=== PATIENT | female | born 1940 | race Caucasian/White ===

== ENCOUNTER → 2016-02-26 | Outpatient (CLI) | payer MEDICARE, OTHER ==
[~2016-02-26] MED LIST: AMLO-147 PO; CHOL100062 PO; HYDR200T5 PO; LANS30CA PO; METF500T4 PO; METO50TA16 PO; [UNRECOGNIZED DRUG - OTHER]
--- NOTE | 2016-02-26 16:43 | RADRPT ---
Echocardiogram Report Patient Name: VICKY FERNÁNDEZ Gender: Female Date: 1940 Study Date: 26-Feb-2016 Gospel Singer: Tirso Galo RDCS Location: OP Ref. Physician: RAFI MAST Quality: Good Procedures: Transthoracic echocardiogram with complete 2D, M-Mode, and doppler examination. Indications: Murmur. 2D/M Mode Doppler Measurement Value Normal Ranges Measurement Value Normal Ranges LVIDd 2D 5.2 3.5 - 5.6 cm ADRIANNA Vmax 1.3 cm2 LVIDs 2D 3.3 2.1 - 4.1 cm ADRIANNA VTI 1.3 cm2 LVPWd 2D 0.7 0.6 - 1.1 cm AV Mean Edvin 1.7 m/sec IVSd 2D 0.9 0.6 - 1.1 cm AV Mean PG 12.5 mmHg AoR Diam 2D 1.7 2.0 - 3.7 cm AV Peak Edvin 2.5 m/sec EDV 2D 130.7 cm3 AV Peak PG 24.1 mmHg ESV 2D 37.5 cm3 AV VTI 56.1 cm LA Dimen 2D 4.6 2.3 - 4.0 cm LVOT Mean Edvin 0.9 m/sec LVOT Diam 1.8 cm LVOT Mean PG 3.3 mmHg LVOT Peak Edvin 1.2 m/sec LVOT Peak PG 6.0 mmHg LVOT VTI 31.8 cm MV E Peak Edvin 1.3 m/sec MV A Peak Edvin 1.0 m/sec MV E/A 1.3 MV Decel Time 191 msec MV Decel [place] 7 MV E/A 1.3 Findings Left Ventricle: Normal left ventricular systolic function. Normal left ventricular cavity size. Normal left ventricular wall thickness. Ejection fraction is visually estimated at 60 %. Right Ventricle: Normal right ventricular size. Normal right ventricular systolic function. Left Atrium: There is moderate enlargement of left atrium. Right Atrium: The right atrium is normal in size. Mitral Valve: Mitral valve leaflets appear mildly thickened. Mild mitral valve regurgitation. Aortic Valve: Mild aortic stenosis. Aortic valve Max velocity 2.46 m/sec. Max PG 24.10 mmHg. Mean PG 12.50 mmHg. Aortic valve area 1.50 cm2. Trace aortic valve regurgitation. Tricuspid Valve: Normal appearance and function of the tricuspid valve with trace physiologic regurgitation. Pericardium: Normal pericardium with no significant pericardial effusion. Aorta: Normal aortic root. IVC: Normal size and normal respiratory collapse consistent with normal right atrial pressure. Conclusions Normal left ventricular systolic function. Normal left ventricular cavity size. Normal left ventricular wall thickness. Ejection fraction is visually estimated at 60 %. Mild aortic stenosis. Trace aortic valve regurgitation. PAP could not be estimated. RA pressure is 3 mmHg. Electronically Signed By: Estevan Salinas 26-Feb-2016 16:42:59 -0800 Patient Name: VICKY FERNÁNDEZ Study Date: 26-Feb-[id number]
== END | disposition home or self-care (01) ==
LOC: EKG 12:08
PROVIDERS: ATTEND Internal Medicine
DX: R01.1 Cardiac murmur, unspecified (principal)
CPT/HCPCS: 93306

== ENCOUNTER 2016-03-02 05:39 | Inpatient (IN) | payer MEDICARE, OTHER ==
[2016-02-28 09:35] VITALS: BMI 36.5
--- NOTE | 2016-02-28 16:48 | PREOPHP ---
DATE OF ADMISSION: 02/26/2016 This patient is being admitted electively on 03/02/[address] Daryl Mayers. HISTORY OF PRESENT ILLNESS: This 75-year-old female has been having increasing pain in her left knee. The patient has failed the usual medical therapy to relieve her left knee pain. She has severe osteoarthritis in that knee. The patient decided to undergo a left total knee replacement. The patient did see Dr. Juan Roach a vascular surgeon preoperatively. She was cleared for this surgery by Dr. Roach. She does have lower extremity venous insufficiency and does have some dependent edema , which she has had for 25 years . CURRENT MEDICATIONS: Include the followin. Candesartan 32 mg a day. 2. Vitamin D3 at 2000 units a day. 3. Plaquenil 200 mg a day. 4. Metformin 500 mg once a day. 5. Amlodipine 5 mg once a day. 6. Toprol-XL 50 mg once a day. 7. Prevacid 30 mg delayed release 1 daily. 8. Librax 5/2.5 t.i.d. p.r.n. PAST MEDICAL HISTORY: Remarkable for diabetes mellitus type 2, hypertension, fibromyalgia, irritable bowel syndrome, peripheral neuropathy, systemic lupus erythematosus, multinodular goiter, osteoarthritis, tendinitis.pancreatitis , she did have a complete cardiac w/u 3 years ago and was told by her PCP that she has minor heart valve issues . ALLERGIES: SHE HAS A HISTORY OF INTOLERANCE OR ALLERGIES TO SEVERAL MEDICATIONS. SHE IS ALLERGIC TO PENICILLIN. SHE THINKS THAT SHE IS ALSO ALLERGIC TO SULFA. SHE IS INTOLERANT OF CAFFEINE IN PILLS, SHE IS INTOLERANT OF SUDAFED, PHENYLPROPANOLAMINE. SHE IS INTOLERANT OF BIAXIN. PAST SURGICAL HISTORY: Include the following. Tonsillectomy and adenoidectomy as a child. Surgery for bowel impaction, right ovarian cyst removal, appendectomy, cholecystectomy, cold nodule removed from right thyroid, multiple dental surgeries, laparoscopy to lyse adhesion after gallbladder surgery, arthroscopic left knee repair and repair of hammertoe of right second toe. FAMILY HISTORY: Father is , of heart disease. Mother is , of heart disease. SOCIAL HISTORY: The patient does not smoke, drinks alcohol socially. She is retired. REVIEW OF SYSTEMS: CONSTITUTIONAL: No chills, no weight gain, no loss of appetite, no fever, no weakness, no weight loss, no fatigue. OPHTHALMOLOGIC: Negative. EARS, NOSE AND THROAT: Negative. CARDIORESPIRATORY: She denies any exertional chest pain, chest pressure, dyspnea on exertion. She does have some dependent lower extremity edema. She does have venous insufficiency of her lower extremities and has had the dependent edema for 25 years . GASTROINTESTINAL: She does have irritable bowel symptoms with alternating constipation and diarrhea. She denies gastroesophageal reflux disease. NEUROLOGIC: She has a history of bilateral lower extremity and some upper extremity paresthesias consistent with the diagnosis of peripheral neuropathy. DERMATOLOGIC: Negative. UROLOGIC: Negative. PHYSICAL EXAMINATION: GENERAL: At this time reveals an obese female in no apparent distress. VITAL SIGNS: Temperature 98, blood pressure 145/70, heart rate 64. HEAD: Normocephalic. EYES: Extraocular muscles intact. NOSE AND MOUTH: Normal. NECK: Supple. No neck vein distention. LUNGS: Clear to auscultation. HEART: Regular rhythm. 2/6 BETSY over R second intercostal space , no gallops or rubs. ABDOMEN: Soft, nontender, no masses or megaly. EXTREMITIES: +1 bilateral pitting edema. IMPRESSION: This patient is cleared for surgery. She did have an echocardiogram at [facility] on 02/26/16 becase of the systolic heart murmur that I heard .The echocardiogram showed normal L ventricular size , wall thickness and contractility . Her ejection fraction was 60 % . She does have mild aortic stenosis and mitral regurgitation . Dictated By: RAFI MAST MD, ND/SHERIDAN Conf#: [id number] DID#: [id number] RAPHAEL
[2016-03-02] VITALS (23 sets, daily range): BP systolic 107–152; BP diastolic 49–67; PULSE 56–66; RESP 12–18; Ht 157.5 cm; Wt 89.5 kg
[~2016-03-02] VITALS: Ht 157.5 cm; Wt 89.5 kg
[2016-03-02] MEDS ORDERED: TRANEXAMIC ACID 910 MG in SOD CHLORIDE 0.9% 100 ML IVPB ONE ×6 (06:00)
[2016-03-02] MEDS ORDERED: CELECOXIB 200 MG CAP PO ONE (06:00)
[2016-03-02] MEDS ORDERED: DEXAMETHASONE 4 MG/ML 1 ML INJ IV ONE (06:00)
[2016-03-02] MEDS ORDERED: BUPIVACAINE 0.5% (SDV) 40 ML, morphine SULFATE (PF) 10 MG, CLONIDINE 100 MCG, EPINEPHri... IRR SCH ×14 (06:00→06:30)
[2016-03-02] MEDS ORDERED: METOCLOPRAMIDE 10 MG TAB PO ONE (06:00)
[2016-03-02] MEDS ORDERED: FAMOTIDINE 20 MG TAB PO ONE (06:00)
[2016-03-02] MEDS ORDERED: CEFAZOLIN 2 GM/50 ML (PMX) 50 ML IVPB ONE (06:00)
[2016-03-02] MEDS: LACTATED RINGER'S 1,000 ML IV SCH ×3 (06:35→10:28)
[2016-03-02] MEDS ORDERED: D5W-0.45 NACL + KCL 20 MEQ 1,000 ML IV SCH (06:43)
[2016-03-02] MEDS: VANCOMYCIN 1 GM (PMX) 250 ML IVPB SCH ×2 (06:47→08:19)
[2016-03-02] MEDS ORDERED: METHYLENE BLUE 10 MG/ML VIAL ONE (06:53)
[2016-03-02] MEDS ORDERED: VANCOMYCIN 1 GM INJ ONE (06:53)
[2016-03-02] MEDS ORDERED: POLYMYXIN/BACITRACIN 1L IRRIG ONE (06:53)
--- NOTE | 2016-03-02 06:54 | HPN ---
Date/Time of Note Date/Time of Note DATE: 03/02/16 TIME: 06:52 Interval H&P Admission Note Pt. seen H&P reviewed: No system changes DEBI BARRIGA MD Mar 02, 2016 06:53
[2016-03-02] MEDS ORDERED: ETOMIDATE 20 MG INJ ONE (06:58)
[2016-03-02] MEDS ORDERED: PROPOFOL 20 ML ONE (06:58)
[2016-03-02] MEDS ORDERED: ROCURONIUM 50 MG INJ ONE (06:58)
[2016-03-02] MEDS ORDERED: morphine SULFATE/PF (10 MG/10 ML) INJ ONE (06:58)
[2016-03-02] MEDS ORDERED: LIDOCAINE 100 MG SYRINGE ONE (06:58)
[2016-03-02] MEDS ORDERED: NEOSTIGMINE 3 MG/3 ML SYRINGE ONE (06:58)
[2016-03-02] MEDS ORDERED: GLYCOPYRROLATE 0.4 MG INJ ONE (06:58)
[2016-03-02] MEDS ORDERED: MIDAZOLAM 1 MG/ML 2 ML INJ ONE (06:59)
[2016-03-02] MEDS ORDERED: ONDANSETRON 4 MG INJ ONE (06:59)
[2016-03-02] MEDS ORDERED: DEXAMETHASONE 4 MG/ML 1 ML INJ ONE (06:59)
[2016-03-02] MEDS ORDERED: ROPIVACAINE 0.5 % 30 ML VIAL ONE (06:59)
[2016-03-02] MEDS ORDERED: FENTAnyl 50 MCG/ML VIAL ONE (06:59)
[2016-03-02] MEDS ORDERED: VANCOMYCIN 500MG/NS (PMX) 100 ML IVPB SCH ×2 (07:00→18:30)
[2016-03-02] MEDS ORDERED: OXYCODONE/ACETAMINOPHEN (5/325) TAB PO PRN ×2 (07:00)
[2016-03-02] MEDS ORDERED: ASPIRIN (EC) 325 MG TAB PO ONE (07:00)
[2016-03-02] MEDS ORDERED: MAGNESIUM HYDROXIDE 30ML CUP PO PRN (07:00)
[2016-03-02] MEDS ORDERED: PROPOFOL 1000 MG INJ ONE (07:00)
[2016-03-02] MEDS ORDERED: HYDROmorphONE 2 MG/ML SYG IV PRN ×2 (07:00)
[2016-03-02] MEDS ORDERED: NALOXONE (0.4 MG/ML) INJ IV PRN ×2 (07:00→08:30)
[2016-03-02] MEDS ORDERED: ACETAMINOPHEN 500 MG TAB PO PRN (07:00)
[2016-03-02] MEDS ORDERED: [UNRECOGNIZED DRUG - OTHER] (07:38)
[2016-03-02] MEDS ORDERED: CHOL100062 PO (07:39)
[2016-03-02] MEDS ORDERED: HYDR200T5 PO (07:40)
[2016-03-02] MEDS ORDERED: METF500T4 PO (07:41)
[2016-03-02] MEDS ORDERED: METO50TA16 PO (07:42)
[2016-03-02] MEDS ORDERED: LANS30CA PO (07:42)
[2016-03-02] MEDS ORDERED: AMLO-147 PO (07:42)
[2016-03-02] MEDS ORDERED: ONDANSETRON 4 MG INJ IV PRN (08:30)
[2016-03-02] MEDS ORDERED: LABETALOL HCL 20MG INJ IV PRN (08:30)
[2016-03-02] MEDS ORDERED: hydrALAzine 20 MG INJ IV PRN (08:30)
[2016-03-02] MEDS ORDERED: FENTAnyl 50 MCG/ML VIAL IV PRN ×3 (08:30)
[2016-03-02] MEDS ORDERED: MEPERIDINE 25 MG INJ IV PRN (08:30)
[2016-03-02] MEDS ORDERED: DIPHENHYDRAMINE 50 MG INJ IV PRN (08:30)
[2016-03-02] MEDS ORDERED: MIDAZOLAM 1 MG/ML 2 ML INJ IV PRN (08:30)
[2016-03-02] MEDS ORDERED: HYDROmorphONE (0.2 MG/ML) 10ML SYG IV PRN ×3 (08:30)
[2016-03-02] MEDS ORDERED: TRIMETHOBENZAMIDE 100 MG/ML VIAL IM PRN (08:30)
--- NOTE | 2016-03-02 09:30 | RADRPT ---
PROCEDURE: XR Left Tibia and Fibula. CLINICAL INDICATION: Left lower leg pain. Intraoperative. TECHNIQUE: Single frontal view. Limited. COMPARISON: No prior studies are available for comparison. FINDINGS: This is a limited study as the knee is not included on the image. There is a surgical device overly ing the ankle. IMPRESSION: 1. Satisfactory limited frontal view of the left tibia and fibula. RPTAT: QQ .Curly Montoya MD, MD Date Time Electronically viewed and signed by .Curly Montoya MD, on 03/02/2016 09:30 .R/
--- NOTE | 2016-03-02 12:05 | RADRPT ---
PROCEDURE: XR Left Knee. CLINICAL INDICATION: Left knee pain. Postop. TECHNIQUE: Two views. Frontal and lateral. COMPARISON: No prior studies are available for comparison. FINDINGS: There is no fracture or dislocation. Gas is present in the soft tissues from the recent surgery. There is a total left knee arthroplasty which appears satisfactory. There is no lytic or blastic lesion. There is no joint effusion. IMPRESSION: 1. Satisfactory postoperative appearance of the left knee. RPTAT: QQ .Curly Montoya MD, Date Time Electronically viewed and signed by .Curly Montoya MD, on 03/02/2016 12:04 .R/
--- NOTE | 2016-03-02 12:06 | OPR ---
DATE OF OPERATION: 03/02/2016 SURGEON: Daryl Mayers MD RAIL CAR REPAIRMAN: Alfonzo Weiner MD The accounting manager assistant controller functioned throughout the case to protect the collateral ligament and patellar tendon, allow for positioning of the knee and cementation technique , and was instrumental to the performance of this procedure. ANESTHESIOLOGIST: PREOPERATIVE DIAGNOSIS: Osteoarthritis, left knee. POSTOPERATIVE DIAGNOSIS: Osteoarthritis, left knee. OPERATION: Total knee replacement, Prasanth, posterior cruciate ligament substituting, with cement 5 femur, C tibia, 18 polyethylene, 29 patella, OrthoSensor technique. ANESTHESIA: Spinal general plus left adduction nerve block. The accounting manager assistant controller functioned throughout the case to protect the collateral ligament , patellar tendon, and allow for positioning of the knee and cementation technique and was instrumental to the performance of this procedure. PROCEDURE: The patient was taken to the operating room and given general anesthesia. The left lower extremity was prepared and draped in the usual manner. Range of motion showed flexion of 110, extension lacked 10 to 12 degrees. A medial peripatellar incision was made. An arthrotomy was carried out. The patella was not everted. The articular surface of the medial patellofemoral had grade 4 changes. The external alignment guide was then used for us to check rotation, then flexion-extension, and then depth of cut. The anterior cruciate ligament and posterior cruciate ligament were both taken. The intramedullary alignment guide was used on the femur after careful enlargement of the hole and irrigation. The distal 12 mm of bone was resected, allowing complete extension. The femur was externally rotated 3 degrees in line with the Prasanth flexion tendon device. A trial reduction was carried out. The OrthoSensor had us "tight" on the lateral side. The distal femur was recut and an additional 2 degrees of valgus, all after that at 5, 30, 90 all OrthoSensor measurements were then 15 pounds. In terms of cutting the tibia, we needed a 16 for flexion stability, therefore we wanted to use an extended stem stubby. Doing this, we appreciated that there was a slight increased slope in the tibias, so after having a small perforation anteriorly, we recut the tibia in 3 degrees less slope. In doing so , it was apparent that there was some deficient bone posterolateral tibia to 3 mm. This was peripheral and can be made up with cement. We used a stubby stem to bypass the small cortical defect and used cement in that small hole. After appropriate ligamentous releasing, the knee came to complete extension with 1+ varus-valgus laxity, 1+ to 2+ AP laxity. The patella measured 25 mm, and 10 mm were taken. The patella tracked with a no-touch technique. The joint was copiously irrigated. The patella, femur, and tibia were inserted with a trial tibia. Range of motion was similar. A 18 component was used, allowing complete extension and flexion of 125 degrees, 1+ to 2+ AP drawer. There was trace to 1+ varus/valgus laxity at 30 degrees. The tourniquet was knotted and weighted throughout the entire procedure. She had had a basket at consult preoperatively, noting good pulses but significant venous stasis even though she had a negative venous Doppler. Hemostasis was excellent throughout the case. The knee was copiously irrigated. The capsule was closed with interrupted #1 Dexon and the subcutaneous tissue with 2-0 Dexon. The skin was closed with subcuticular and a compression dressing was applied. Dictated By: DARYL KC/SHERIDAN Conf#: [id number] DID#: [id number] MTDD
[2016-03-02] MEDS ORDERED: GLUCOSE GEL 15 GRAM TUBE BUCCAL PRN (14:00)
[2016-03-02] MEDS ORDERED: GLUCAGON 1 MG INJ IM PRN (14:00)
[2016-03-02] MEDS ORDERED: DEXTROSE 50% 50 ML SYRINGE IV PRN ×2 (14:00)
[2016-03-02] MEDS ORDERED: GLUCOSE GEL 15 GRAM TUBE PO PRN ×2 (14:00)
[2016-03-02] MEDS: 1/2 NS + KCL 20 MEQ 1,000 ML IV SCH (14:09)
[2016-03-02] MEDS: ONDANSETRON 4 MG INJ IV PRN ×3 (14:19→22:11)
--- NOTE | 2016-03-02 14:21 | CONS ---
DATE OF ADMISSION: 03/02/2016 DATE OF CONSULTATION: MEDICAL CONSULTATION Thank you, Dr. Mayers, for asking me to participate in the medical management of this patient. REASON FOR CONSULTATION: To manage the patient's type 2 diabetes mellitus, hypertension, fibromyalg ia, and irritable bowel syndrome. HISTORY OF PRESENT ILLNESS: This 75-year-old female is now postop a left total knee replacement by Dr. Mayers. The patient has been having increasing pain in her left knee. She failed medical the rapy and decided to undergo a total knee replacement. The patient is now postop the surgery. She i s awake and alert and answers questions appropriately. The patient was cleared preoperatively by Dr Danette Roach, a vascular surgeon, and she also had an echocardiogram done preoperatively for a systolic h eart murmur. CURRENT MEDICATIONS: 1. Include the following: Candesartan 32 mg a day. 2. Vitamin D3 2000 units a day. 3. Plaquenil 200 mg a day. 4. Metformin 500 mg a day. 5. Amlodipine 5 mg a day. 6. Toprol-XL 50 mg a day. 7. Prevacid 30 mg a day. 8. Librax p.r.n. PAST MEDICAL HISTORY: Remarkable for type 2 diabetes mellitus, hypertension, fibromyalgia, irritabl e bowel syndrome, peripheral neuropathy, systemic lupus erythematosus, multinodular goiter, osteoart hritis and tendinitis. The patient has a history of either intolerance or allergies to several medi cations. ALLERGIES: SHE IS ALLERGIC TO: 1. PENICILLIN. 2. SULFA DRUGS. SHE IS INTOLERANT OF CAFFEINE AND PILLS, SUDAFED, PHENYLPROPANOLAMINE, AND BIAXIN. PAST SURGICAL HISTORY: Includes the following: Tonsillectomy and adenoidectomy as a child, surgery for bowel impaction, right ovarian cyst removal, appendectomy, cholecystectomy, cold nodule removed from right thyroid gland, multiple dental surgeries, laparoscopy to lyse adhesions after gallbladde r surgery, arthroscopic left knee repair, and repair hammertoe, right second toe. FAMILY HISTORY: Father is . He of heart disease. Mother is , of heart d isease. SOCIAL HISTORY: The patient does not smoke. She drinks alcohol socially. She is retired. PHYSICAL EXAMINATION: GENERAL: At this time reveals an obese female in no apparent distress. VITAL SIGNS: Temperature is 98.5, pulse of 60, respirations 14, blood pressure 131/52, O2 saturatio n is 100% on room air. HEENT: Head normocephalic. EYES: Extraocular muscles intact. NOSE AND MOUTH: Normal. NECK: Supple. No neck vein distention. LUNGS: Clear to auscultation. HEART: Regular rhythm. No murmurs, gallops or rubs. ABDOMEN: Soft, nontender. EXTREMITIES: She does have a large bandage on her left knee. She does have trace to +1 pretibial e lay bilaterally. IMPRESSION: This patient is stable postoperatively. She seems to be doing well. Her blood pressur e is under control. I will manage the patient's hypertension, type 2 diabetes mellitus, irritable b owel syndrome, peripheral neuropathy, hypothyroidism. PLAN: 1. Resume some routine medications. 2. Check labs in the morning. 3. Postop total knee replacement protocol. 4. Sliding scale insulin coverage. 5. I will follow the patient along with you. Dictated By: RAFI MAST MD, ND/SHERIDAN Conf#: [id number] DID#: [id number]
[2016-03-02] MEDS: INSULIN ASPART [NOVOLOG] 3 ML PEN SC SCH ×2 (17:55→21:00)
[2016-03-02] MEDS: traMADol 50 MG TAB PO SCH (18:00)
[2016-03-02] MEDS: METOCLOPRAMIDE 10 MG TAB PO SCH (20:53)
[2016-03-02] MEDS: FAMOTIDINE 20 MG TAB PO SCH (20:53)
[2016-03-02] MEDS: SENNA/DOCUSATE NA (8.6MG/50MG) TAB PO SCH (21:00)
[2016-03-03 02:00] VITALS: BP 133/62; PULSE 54; RESP 19
[2016-03-03] MEDS: ACCUCHECK XX SCH (02:00)
[2016-03-03] MEDS: ONDANSETRON 4 MG INJ IV PRN ×5 (02:20→20:57)
[2016-03-03] MEDS: HYDROmorphONE 1 MG/ML SYG IV PRN ×5 (02:21→20:57)
[2016-03-03 05:28] LABS: POTASSIUM 4.7 mmol/L (3.5-5.1)
[2016-03-03 05:31] LABS: CREATININE 0.62 mg/dl (0.44-1.00)
[2016-03-03 05:32] LABS: CALCIUM 8.7 mg/dl (8.4-10.2)
[2016-03-03 05:34] LABS: HEMATOCRIT 29.8 % (37.0-47.0); HEMOGLOBIN 9.9 g/dl (12.0-16.0); LYMPHOCYTES # 1.3 10^3/ul (0.8-2.9); LYMPHOCYTES % 9.3 % (15.0-51.0); MEAN CORPUSCULAR HGB CONC 33.4 g/dl (32.0-37.0); MEAN CORPUSCULAR VOLUME 80.8 fl (82.0-101.0); MEAN PLATELET VOLUME 8.9 fl (7.4-10.4); MONOCYTE # 1.2 10^3/ul (0.3-0.9); MONOCYTES % 8.8 % (0.0-11.0); NEUTROPHIL # 11.4 10^3/ul (1.6-7.5); NEUTROPHILS % 81.9 % (39.0-77.0); PLATELET COUNT 264 10^3/UL (140-440); RED BLOOD COUNT 3.69 10^6/ul (4.20-5.40); RED CELL DISTRIBUTION WIDTH 17.6 % (11.5-14.5)
[2016-03-03] MEDS: traMADol 50 MG TAB PO SCH ×4 (05:58→17:15)
[2016-03-03 06:21] LABS: CONDITION 1; LH ANALYZER COMMENTS 1
[2016-03-03] MEDS: 1/2 NS + KCL 20 MEQ 1,000 ML IV SCH ×2 (06:24→18:06)
[2016-03-03] MEDS: INSULIN ASPART [NOVOLOG] 3 ML PEN SC SCH ×4 (07:50→21:00)
[2016-03-03] MEDS: HYDROXYCHLOROQUINE 200 MG TAB PO SCH ×2 (08:37→21:06)
[2016-03-03] MEDS: FAMOTIDINE 20 MG TAB PO SCH ×2 (08:37→20:34)
[2016-03-03] MEDS: METOCLOPRAMIDE 10 MG TAB PO SCH ×2 (08:38→20:33)
[2016-03-03 08:48] VITALS: BP 130/58; RESP 18
[2016-03-03] MEDS: METOPROLOL (XL) 50 MG TAB PO SCH ×2 (09:00→20:33)
[2016-03-03] MEDS: CHOLECALCIFEROL 2,000 UNIT CAP PO SCH (09:00)
[2016-03-03] MEDS: ASPIRIN (EC) 325 MG TAB PO SCH ×2 (09:00→20:32)
[2016-03-03] MEDS: SENNA/DOCUSATE NA (8.6MG/50MG) TAB PO SCH ×2 (09:00→20:34)
[2016-03-03] MEDS ORDERED: VANCOMYCIN 500MG/NS (PMX) 100 ML IVPB SCH (09:00)
[2016-03-03] MEDS: AMLODIPINE 5 MG TAB PO SCH ×2 (09:00→20:34)
[2016-03-03] MEDS: LOSARTAN 50 MG TAB PO SCH (09:31)
--- NOTE | 2016-03-03 14:01 | CONS ---
Date/Time of Note Date/Time of Note DATE: 03/03/16 TIME: 13:56 Assessment/Plan Assessment/Plan Chief Complaint/Hosp Course 1.She is one day post op a L TKR . She is having dizziness and nausea . she has been up with PT today for a few steps . 2. will continue crrent medication and PT . Problems: Consultation Date/Type/Reason Admit Date/Time Mar 02, 2016 at 05:39 Initial Consult Date 24 HR Interval Summary Free Text/Dictation she is 1 day post op L TKR . She is having some nausea and dizziness . Exam/Review of Systems Vital Signs Vitals Vital Signs Date Time Temp Pulse Resp B/P Pulse Ox O2 Delivery O2 Flow Rate FiO2 03/03/16 08:48 97.8 54 18 130/58 100 03/03/16 02:00 Nasal Cannula 03/02/16 20:30 2.0 Intake and Output 03/02/16 03/02/16 03/03/16 15:00 23:00 07:00 Intake Total 2528.2 ml 660 ml 1020 ml Output Total 600 ml 400 ml 1750 ml Balance 1928.2 ml 260 ml -730 ml Exam she has a large bandage on L leg . no edema . Constitutional: alert, oriented, well developed Psych: nl mood/affect, no complaints Respiratory: clear to auscultation, normal air movement Cardiovascular: regular rate and rhythm Gastrointestinal: soft Results Result Diagram: 03/03/16 0428 03/03/16 0428 Results 24 hrs Laboratory Tests Test 03/02/16 18:15 03/02/16 21:19 03/03/16 04:28 03/03/16 08:12 Bedside Glucose 148 138 117 Anion Gap 15 Basophils # 0.0 Basophils % 0.0 Blood Morphology Comment Blood Urea Nitrogen 13 Calcium Level 8.7 Carbon Dioxide Level 28 Chloride Level 100 Creatinine 0.62 Eosinophils # 0.0 Eosinophils % 0.0 Glucose Level 130 Hematocrit 29.8 L Hemoglobin 9.9 L Lymphocytes # 1.3 Lymphocytes % 9.3 L Mean Corpuscular Hemoglobin 27.0 L Mean Corpuscular Hemoglobin Concent 33.4 Mean Corpuscular Volume 80.8 L Mean Platelet Volume 8.9 Monocytes # 1.2 H Monocytes % 8.8 Neutrophils # 11.4 H Neutrophils % 81.9 H Nucleated Red Blood Cells # 0.0 Nucleated Red Blood Cells % 0.0 Platelet Count 264 Potassium Level 4.7 Red Blood Count 3.69 L Red Cell Distribution Width 17.6 H Sodium Level 138 White Blood Count 14.0 H Test 03/03/16 12:29 Bedside Glucose 116 Medications Medications Current Medications Tramadol HCl (Ultram) 50 mg Q6 PO ; Start 03/02/16 at 18:00 Oxycodone/ Acetaminophen (Percocet (5/ 325)) 1 tab Q3H PRN PO PAIN LEVEL 1-5; Start 03/02/16 at 07:00 Oxycodone/ Acetaminophen (Percocet (5/ 325)) 2 tab Q3H PRN PO PAIN LEVEL 6-10; Start 03/02/16 at 07:00 Hydromorphone HCl (Dilaudid) 1 mg Q3H PRN IV PAIN LEVEL 1-3 Last administered on 03/03/16 10:49; Admin Dose 1 MG; Start 03/02/16 at 07:00 Hydromorphone HCl (Dilaudid) 1.5 mg Q3H PRN IV PAIN LEVEL 4-6; Start 03/02/16 at 07:00 Hydromorphone HCl (Dilaudid) 2 mg Q3H PRN IV PAIN LEVEL 7-10; Start 03/02/16 at 07:00 Naloxone HCl (Narcan) 0.2 mg Q2M PRN IV RESPIRATORY RATE LESS THAN 8; Start 03/02/16 at 07:00 Senna/Docusate Sodium (Senokot-S) 1 tab BID PO ; Start 03/02/16 at 21:00 Magnesium Hydroxide (Milk Of Mag) 30 ml BID PRN PO CONSTIPATION; Start 03/02/16 at 07:00 Magnesium Hydroxide (Milk Of Mag) 30 ml HS PO ; Start 03/04/16 at 21:00 Ondansetron HCl (Zofran Inj) 4 mg Q4H PRN IV NAUSEA Last administered on 10:48; Admin Dose 4 MG; Start 03/02/16 at 07:00 Acetaminophen (Tylenol Tab) 1,000 mg Q4H PRN PO TEMP GREATER THAN 100.4 (ORAL) ; Start 03/02/16 at 07:00 Famotidine (Pepcid) 20 mg BID PO Last administered on 03/03/16 08:37; Admin Dose 20 MG; Start 03/02/16 at 21:00 Metoclopramide HCl (Reglan) 10 mg BID PO Last administered on 03/03/16 08:38; Admin Dose 10 MG; Start 03/02/16 at 21:00 Aspirin 325 mg 325 mg BID PO ; Start 03/03/16 at 09:00 Potassium Chloride/Sodium Chloride (1/2 NS + KCl 20 Meq) 1,000 ml @ 70 mls/hr [id number] IV Last administered on 03/03/16 06:24; Admin Dose 70 MLS/HR; Start at 13:30 Diagnostic Test (Pha) (Accucheck) 1 ea 02 XX ; Start 03/03/16 at 02:00 Amlodipine Besylate (Norvasc) 5 mg DAILY PO ; Start 03/03/16 at 09:00 Cholecalciferol (Vitamin D) 2,000 unit DAILY PO ; Start 03/03/16 at 09:00 Hydroxychloroquine Sulfate (Plaquenil) 200 mg DAILY PO ; Start 03/03/16 at 09:00 Metoprolol Succinate (Toprol Xl) 50 mg DAILY PO ; Start 03/03/16 at 09:00 Losartan Potassium (Cozaar) 50 mg DAILY PO Last administered on 03/03/16 09:31 ; Admin Dose 50 MG; Start 03/03/16 at 09:00 Miscellaneous Information 1 ea NOTE XX ; Start 03/02/16 at 14:00 Glucose (Glutose) 15 gm Q15M PRN PO DECREASED GLUCOSE; Start 03/02/16 at 14:00 Glucose (Glutose) 22.5 gm Q15M PRN PO DECREASED GLUCOSE; Start 03/02/16 at 14:00 Dextrose (D50w Syringe) 25 ml Q15M PRN IV DECREASED GLUCOSE; Start 03/02/16 at 14:00 Dextrose (D50w Syringe) 50 ml Q15M PRN IV DECREASED GLUCOSE; Start 03/02/16 at 14:00 Glucagon (Glucagen) 1 mg Q15M PRN IM DECREASED GLUCOSE; Start 03/02/16 at 14:00 Glucose (Glutose) 15 gm Q15M PRN BUCCAL DECREASED GLUCOSE; Start 03/02/16 at 14: 00 RAFI MAST MD Mar 03, 2016 14:00
[2016-03-03 19:57] VITALS: BP 163/72; RESP 18
[2016-03-04] MEDS: ONDANSETRON 4 MG INJ IV PRN ×6 (01:07→22:04)
[2016-03-04] MEDS: HYDROmorphONE 1 MG/ML SYG IV PRN (01:08)
[2016-03-04] MEDS: 1/2 NS + KCL 20 MEQ 1,000 ML IV SCH ×2 (01:26→20:54)
[2016-03-04] MEDS: ACCUCHECK XX SCH (02:00)
[2016-03-04 05:17] LABS: BASOPHIL # 0.1 10^3/ul (0.0-0.1); BASOPHILS % 0.5 % (0.0-2.0); EOSINOPHILS # 0.1 10^3/ul (0.0-0.5); EOSINOPHILS % 0.6 % (0.0-7.0); HEMATOCRIT 29.1 % (37.0-47.0); HEMOGLOBIN 9.7 g/dl (12.0-16.0); LYMPHOCYTES # 2.3 10^3/ul (0.8-2.9); LYMPHOCYTES % 17.4 % (15.0-51.0); MEAN CORPUSCULAR HEMOGLOBIN 27.1 pg (29.0-33.0); MEAN CORPUSCULAR HGB CONC 33.3 g/dl (32.0-37.0); MEAN CORPUSCULAR VOLUME 81.3 fl (82.0-101.0); MEAN PLATELET VOLUME 8.8 fl (7.4-10.4); MONOCYTE # 1.4 10^3/ul (0.3-0.9); MONOCYTES % 10.8 % (0.0-11.0); NEUTROPHIL # 9.4 10^3/ul (1.6-7.5); NEUTROPHILS % 70.7 % (39.0-77.0); PLATELET COUNT 259 10^3/UL (140-440); RED BLOOD COUNT 3.59 10^6/ul (4.20-5.40); RED CELL DISTRIBUTION WIDTH 17.3 % (11.5-14.5); UNCORRECTED WBC 13.3 10^3/ul (4.8-10.8); WHITE BLOOD COUNT 13.3 10^3/ul (4.8-10.8)
[2016-03-04 05:26] LABS: CONDITION 1; LH ANALYZER COMMENTS 1
[2016-03-04] MEDS: traMADol 50 MG TAB PO SCH ×4 (05:30→17:14)
[2016-03-04 05:31] LABS: POTASSIUM 4.3 mmol/L (3.5-5.1)
[2016-03-04 05:34] LABS: CALCIUM 8.6 mg/dl (8.4-10.2); CREATININE 0.67 mg/dl (0.44-1.00)
[2016-03-04 07:00] VITALS: BP 119/64; RESP 20
[2016-03-04] MEDS: INSULIN ASPART [NOVOLOG] 3 ML PEN SC SCH ×4 (07:50→20:53)
[2016-03-04] MEDS: SENNA/DOCUSATE NA (8.6MG/50MG) TAB PO SCH ×2 (08:52→20:53)
[2016-03-04] MEDS: METOCLOPRAMIDE 10 MG TAB PO SCH ×2 (08:52→20:53)
[2016-03-04] MEDS: CHOLECALCIFEROL 2,000 UNIT CAP PO SCH (08:52)
[2016-03-04] MEDS: FAMOTIDINE 20 MG TAB PO SCH ×2 (08:52→20:53)
[2016-03-04] MEDS: LOSARTAN 50 MG TAB PO SCH (08:53)
[2016-03-04] MEDS: ASPIRIN (EC) 325 MG TAB PO SCH ×2 (09:00→20:53)
--- NOTE | 2016-03-04 13:21 | CONS ---
Date/Time of Note Date/Time of Note DATE: 03/04/16 TIME: 13:17 Assessment/Plan Assessment/Plan Chief Complaint/Hosp Course 1.She is two days post op a L TKR . She is having less dizziness and nausea . She is having some hoarseness due to ET tube . 2. will continue current medication and PT . 3. will order Cepastat lozenges Problems: Consultation Date/Type/Reason Admit Date/Time Mar 02, 2016 at 05:39 24 HR Interval Summary Free Text/Dictation she is having a sore throat and some hoarseness Exam/Review of Systems Vital Signs Vitals Vital Signs Date Time Temp Pulse Resp B/P Pulse Ox O2 Delivery O2 Flow Rate FiO2 03/04/16 07:00 98.4 63 20 119/64 97 03/03/16 02:00 Nasal Cannula 03/02/16 20:30 2.0 Intake and Output 03/03/16 03/03/16 03/04/16 15:00 23:00 07:00 Intake Total 1270 ml 400 ml Output Total 850 ml 720 ml Balance 420 ml -320 ml Exam Constitutional: alert, oriented, well developed Respiratory: clear to auscultation, normal air movement Cardiovascular: nl pulses, regular rate and rhythm Extremities: edema Results Result Diagram: 03/04/16 0455 03/04/16 0455 Results 24 hrs Laboratory Tests Test 03/03/16 17:13 03/03/16 20:30 03/04/16 04:55 03/04/16 07:41 Bedside Glucose 123 130 146 Anion Gap 13 Basophils # 0.1 Basophils % 0.5 Blood Morphology Comment Blood Urea Nitrogen 10 Calcium Level 8.6 Carbon Dioxide Level 28 Chloride Level 98 Creatinine 0.67 Eosinophils # 0.1 Eosinophils % 0.6 Glucose Level 126 Hematocrit 29.1 L Hemoglobin 9.7 L Lymphocytes # 2.3 Lymphocytes % 17.4 Mean Corpuscular Hemoglobin 27.1 L Mean Corpuscular Hemoglobin Concent 33.3 Mean Corpuscular Volume 81.3 L Mean Platelet Volume 8.8 Monocytes # 1.4 H Monocytes % 10.8 Neutrophils # 9.4 H Neutrophils % 70.7 Nucleated Red Blood Cells # 0.0 Nucleated Red Blood Cells % 0.0 Platelet Count 259 Potassium Level 4.3 Red Blood Count 3.59 L Red Cell Distribution Width 17.3 H Sodium Level 135 White Blood Count 13.3 H Test 03/04/16 11:30 Bedside Glucose 135 Medications Medications Current Medications Tramadol HCl (Ultram) 50 mg Q6 PO Last administered on 03/04/16 12:02; Admin Dose 50 MG; Start 03/02/16 at 18:00 Oxycodone/ Acetaminophen (Percocet (5/ 325)) 1 tab Q3H PRN PO PAIN LEVEL 1-5; Start 03/02/16 at 07:00 Oxycodone/ Acetaminophen (Percocet (5/ 325)) 2 tab Q3H PRN PO PAIN LEVEL 6-10; Start 03/02/16 at 07:00 Hydromorphone HCl (Dilaudid) 1 mg Q3H PRN IV PAIN LEVEL 1-3 Last administered on 03/04/16 01:08; Admin Dose 1 MG; Start 03/02/16 at 07:00 Hydromorphone HCl (Dilaudid) 1.5 mg Q3H PRN IV PAIN LEVEL 4-6; Start 03/02/16 at 07:00 Hydromorphone HCl (Dilaudid) 2 mg Q3H PRN IV PAIN LEVEL 7-10; Start 03/02/16 at 07:00 Naloxone HCl (Narcan) 0.2 mg Q2M PRN IV RESPIRATORY RATE LESS THAN 8; Start 03/02/16 at 07:00 Senna/Docusate Sodium (Senokot-S) 1 tab BID PO Last administered on 03/04/16 08:52; Admin Dose 1 TAB; Start 03/02/16 at 21:00 Magnesium Hydroxide (Milk Of Mag) 30 ml BID PRN PO CONSTIPATION; Start 03/02/16 at 07:00 Magnesium Hydroxide (Milk Of Mag) 30 ml HS PO ; Start 03/04/16 at 21:00 Ondansetron HCl (Zofran Inj) 4 mg Q4H PRN IV NAUSEA Last administered on 09:44; Admin Dose 4 MG; Start 03/02/16 at 07:00 Acetaminophen (Tylenol Tab) 1,000 mg Q4H PRN PO TEMP GREATER THAN 100.4 (ORAL) ; Start 03/02/16 at 07:00 Famotidine (Pepcid) 20 mg BID PO Last administered on 03/04/16 08:52; Admin Dose 20 MG; Start 03/02/16 at 21:00 Metoclopramide HCl (Reglan) 10 mg BID PO Last administered on 03/04/16 08:52; Admin Dose 10 MG; Start 03/02/16 at 21:00 Aspirin 325 mg 325 mg BID PO Last administered on 03/03/16 20:32; Admin Dose 325 MG; Start 03/03/16 at 09:00 Potassium Chloride/Sodium Chloride (1/2 NS + KCl 20 Meq) 1,000 ml @ 70 mls/hr [id number] IV Last administered on 03/04/16 01:26; Admin Dose 70 MLS/HR; Start at 13:30 Diagnostic Test (Pha) (Accucheck) 1 ea 02 XX ; Start 03/03/16 at 02:00 Amlodipine Besylate (Norvasc) 5 mg DAILY PO Last administered on 03/03/16 20: 34; Admin Dose 5 MG; Start 03/03/16 at 09:00 Cholecalciferol (Vitamin D) 2,000 unit DAILY PO Last administered on 03/04/16 08:52; Admin Dose 2,000 UNIT; Start 03/03/16 at 09:00 Hydroxychloroquine Sulfate (Plaquenil) 200 mg DAILY PO Last administered on 21:06; Admin Dose 200 MG; Start 03/03/16 at 09:00 Metoprolol Succinate (Toprol Xl) 50 mg DAILY PO Last administered on 03/03/16 20:33; Admin Dose 50 MG; Start 03/03/16 at 09:00 Losartan Potassium (Cozaar) 50 mg DAILY PO Last administered on 03/04/16 08:53 ; Admin Dose 50 MG; Start 03/03/16 at 09:00 Miscellaneous Information 1 ea NOTE XX ; Start 03/02/16 at 14:00 Glucose (Glutose) 15 gm Q15M PRN PO DECREASED GLUCOSE; Start 03/02/16 at 14:00 Glucose (Glutose) 22.5 gm Q15M PRN PO DECREASED GLUCOSE; Start 03/02/16 at 14:00 Dextrose (D50w Syringe) 25 ml Q15M PRN IV DECREASED GLUCOSE; Start 03/02/16 at 14:00 Dextrose (D50w Syringe) 50 ml Q15M PRN IV DECREASED GLUCOSE; Start 03/02/16 at 14:00 Glucagon (Glucagen) 1 mg Q15M PRN IM DECREASED GLUCOSE; Start 03/02/16 at 14:00 Glucose (Glutose) 15 gm Q15M PRN BUCCAL DECREASED GLUCOSE; Start 03/02/16 at 14: 00 RAFI MAST MD Mar 04, 2016 13:21
[2016-03-04] MEDS ORDERED: CEPASTAT LOZENGE MT PRN (13:30)
[2016-03-04 20:00] VITALS: BP 147/65; RESP 20
[2016-03-04] MEDS: MAGNESIUM HYDROXIDE 30ML CUP PO SCH (20:53)
[2016-03-04] MEDS: METOPROLOL (XL) 50 MG TAB PO SCH (22:05)
[2016-03-04] MEDS: HYDROXYCHLOROQUINE 200 MG TAB PO SCH (22:05)
[2016-03-04] MEDS: AMLODIPINE 5 MG TAB PO SCH (22:06)
[2016-03-05] MEDS: ACCUCHECK XX SCH (02:00)
[2016-03-05] MEDS: ONDANSETRON 4 MG INJ IV PRN ×5 (04:52→23:51)
[2016-03-05] MEDS: traMADol 50 MG TAB PO SCH ×5 (04:56→23:49)
[2016-03-05 05:23] LABS: BASOPHILS % 0.3 % (0.0-2.0); EOSINOPHILS # 0.2 10^3/ul (0.0-0.5); EOSINOPHILS % 1.6 % (0.0-7.0); HEMOGLOBIN 9.6 g/dl (12.0-16.0); LYMPHOCYTES # 2.2 10^3/ul (0.8-2.9); LYMPHOCYTES % 18.1 % (15.0-51.0); MEAN CORPUSCULAR HEMOGLOBIN 26.9 pg (29.0-33.0); MEAN CORPUSCULAR HGB CONC 33.2 g/dl (32.0-37.0); MEAN CORPUSCULAR VOLUME 81.2 fl (82.0-101.0); MEAN PLATELET VOLUME 8.8 fl (7.4-10.4); MONOCYTE # 1.2 10^3/ul (0.3-0.9); NEUTROPHIL # 8.4 10^3/ul (1.6-7.5); PLATELET COUNT 270 10^3/UL (140-440); RED BLOOD COUNT 3.57 10^6/ul (4.20-5.40); RED CELL DISTRIBUTION WIDTH 17.4 % (11.5-14.5); UNCORRECTED WBC 11.9 10^3/ul (4.8-10.8); WHITE BLOOD COUNT 11.9 10^3/ul (4.8-10.8)
[2016-03-05 05:39] LABS: CONDITION 1; LH ANALYZER COMMENTS 1
[2016-03-05 05:42] LABS: CREATININE 0.56 mg/dl (0.44-1.00)
[2016-03-05 05:43] LABS: CALCIUM 8.8 mg/dl (8.4-10.2)
[2016-03-05 07:36] VITALS: BP 148/66; RESP 18
[2016-03-05] MEDS: INSULIN ASPART [NOVOLOG] 3 ML PEN SC SCH ×4 (07:50→21:00)
[2016-03-05] MEDS: ASPIRIN (EC) 325 MG TAB PO SCH ×2 (09:11→21:33)
[2016-03-05] MEDS: CHOLECALCIFEROL 2,000 UNIT CAP PO SCH (09:11)
[2016-03-05] MEDS: FAMOTIDINE 20 MG TAB PO SCH ×2 (09:12→21:23)
[2016-03-05] MEDS: LOSARTAN 50 MG TAB PO SCH (09:12)
[2016-03-05] MEDS: METOCLOPRAMIDE 10 MG TAB PO SCH ×2 (09:12→21:24)
[2016-03-05] MEDS: SENNA/DOCUSATE NA (8.6MG/50MG) TAB PO SCH ×2 (09:12→21:23)
[2016-03-05] MEDS: 1/2 NS + KCL 20 MEQ 1,000 ML IV SCH (13:00)
--- NOTE | 2016-03-05 13:56 | CONS ---
Date/Time of Note Date/Time of Note DATE: 03/05/16 TIME: 13:53 Assessment/Plan Assessment/Plan Chief Complaint/Hosp Course 1.She is 3 days post op a L TKR . She is overall feeling better. Her dizziness and nausea have improved. She is eating. She is participating with physical therapy. . 2. will continue current medication and PT . She wants to go home rather than a rehabilitation center. She will have full-time care at home. Problems: Consultation Date/Type/Reason Admit Date/Time Mar 02, 2016 at 05:39 Type of Consultation: medicine 24 HR Interval Summary Free Text/Dictation She is feeling better. She has been up with physical therapy. Constitutional: improved, no complaints Exam/Review of Systems Vital Signs Vitals Vital Signs Date Time Temp Pulse Resp B/P Pulse Ox O2 Delivery O2 Flow Rate FiO2 03/05/16 07:36 98.2 62 18 148/66 97 03/03/16 02:00 Nasal Cannula 03/02/16 20:30 2.0 Intake and Output 03/04/16 03/04/16 03/05/16 15:00 23:00 07:00 Intake Total 1820 ml 1160 ml Output Total 1200 ml Balance 620 ml 1160 ml Exam Constitutional: alert, oriented, well developed Respiratory: clear to auscultation, normal air movement Cardiovascular: nl pulses, regular rate and rhythm Gastrointestinal: soft Musculoskeletal: nl extremities to inspection Results Result Diagram: 03/05/16 0450 03/05/16 0450 Results 24 hrs Laboratory Tests Test 03/04/16 16:21 03/04/16 20:52 03/05/16 04:50 03/05/16 08:13 Bedside Glucose 137 116 133 Anion Gap 16 Basophils # 0.0 Basophils % 0.3 Blood Morphology Comment Blood Urea Nitrogen 6 L Calcium Level 8.8 Carbon Dioxide Level 29 Chloride Level 98 Creatinine 0.56 Eosinophils # 0.2 Eosinophils % 1.6 Glucose Level 123 Hematocrit 29.0 L Hemoglobin 9.6 L Lymphocytes # 2.2 Lymphocytes % 18.1 Mean Corpuscular Hemoglobin 26.9 L Mean Corpuscular Hemoglobin Concent 33.2 Mean Corpuscular Volume 81.2 L Mean Platelet Volume 8.8 Monocytes # 1.2 H Monocytes % 10.0 Neutrophils # 8.4 H Neutrophils % 70.0 Nucleated Red Blood Cells # 0.0 Nucleated Red Blood Cells % 0.0 Platelet Count 270 Potassium Level 4.0 Red Blood Count 3.57 L Red Cell Distribution Width 17.4 H Sodium Level 139 White Blood Count 11.9 H Test 03/05/16 11:41 Bedside Glucose 132 Medications Medications Current Medications Tramadol HCl (Ultram) 50 mg Q6 PO Last administered on 03/05/16 13:00; Admin Dose 50 MG; Start 03/02/16 at 18:00 Oxycodone/ Acetaminophen (Percocet (5/ 325)) 1 tab Q3H PRN PO PAIN LEVEL 1-5; Start 03/02/16 at 07:00 Oxycodone/ Acetaminophen (Percocet (5/ 325)) 2 tab Q3H PRN PO PAIN LEVEL 6-10; Start 03/02/16 at 07:00 Hydromorphone HCl (Dilaudid) 1 mg Q3H PRN IV PAIN LEVEL 1-3 Last administered on 03/04/16 01:08; Admin Dose 1 MG; Start 03/02/16 at 07:00 Hydromorphone HCl (Dilaudid) 1.5 mg Q3H PRN IV PAIN LEVEL 4-6; Start 03/02/16 at 07:00 Hydromorphone HCl (Dilaudid) 2 mg Q3H PRN IV PAIN LEVEL 7-10; Start 03/02/16 at 07:00 Naloxone HCl (Narcan) 0.2 mg Q2M PRN IV RESPIRATORY RATE LESS THAN 8; Start 03/02/16 at 07:00 Senna/Docusate Sodium (Senokot-S) 1 tab BID PO Last administered on 03/05/16 09:12; Admin Dose 1 TAB; Start 03/02/16 at 21:00 Magnesium Hydroxide (Milk Of Mag) 30 ml BID PRN PO CONSTIPATION; Start 03/02/16 at 07:00 Magnesium Hydroxide (Milk Of Mag) 30 ml HS PO Last administered on 03/04/16 20 :53; Admin Dose 30 ML; Start 03/04/16 at 21:00 Ondansetron HCl (Zofran Inj) 4 mg Q4H PRN IV NAUSEA Last administered on 13:02; Admin Dose 4 MG; Start 03/02/16 at 07:00 Acetaminophen (Tylenol Tab) 1,000 mg Q4H PRN PO TEMP GREATER THAN 100.4 (ORAL) ; Start 03/02/16 at 07:00 Famotidine (Pepcid) 20 mg BID PO Last administered on 03/05/16 09:12; Admin Dose 20 MG; Start 03/02/16 at 21:00 Metoclopramide HCl (Reglan) 10 mg BID PO Last administered on 03/05/16 09:12; Admin Dose 10 MG; Start 03/02/16 at 21:00 Aspirin 325 mg 325 mg BID PO Last administered on 03/05/16 09:11; Admin Dose 325 MG; Start 03/03/16 at 09:00 Potassium Chloride/Sodium Chloride (02/23 NS + KCl 20 Meq) 1,000 ml @ 70 mls/hr [id number] IV Last administered on 03/04/16 20:54; Admin Dose 70 MLS/HR; Start at 13:30 Diagnostic Test (Pha) (Accucheck) 1 ea 02 XX ; Start 03/03/16 at 02:00 Cholecalciferol (Vitamin D) 2,000 unit DAILY PO Last administered on 03/05/16 09:11; Admin Dose 2,000 UNIT; Start 03/03/16 at 09:00 Losartan Potassium (Cozaar) 50 mg DAILY PO Last administered on 03/05/16 09:12 ; Admin Dose 50 MG; Start 03/03/16 at 09:00 Miscellaneous Information 1 ea NOTE XX ; Start 03/02/16 at 14:00 Glucose (Glutose) 15 gm Q15M PRN PO DECREASED GLUCOSE; Start 03/02/16 at 14:00 Glucose (Glutose) 22.5 gm Q15M PRN PO DECREASED GLUCOSE; Start 03/02/16 at 14:00 Dextrose (D50w Syringe) 25 ml Q15M PRN IV DECREASED GLUCOSE; Start 03/02/16 at 14:00 Dextrose (D50w Syringe) 50 ml Q15M PRN IV DECREASED GLUCOSE; Start 03/02/16 at 14:00 Glucagon (Glucagen) 1 mg Q15M PRN IM DECREASED GLUCOSE; Start 03/02/16 at 14:00 Glucose (Glutose) 15 gm Q15M PRN BUCCAL DECREASED GLUCOSE; Start 03/02/16 at 14: 00 Phenol (Cepastat Lozenge) 1 lozenge Q1H PRN MT pain Last administered on t 13:38; Admin Dose 1 LOZENGE; Start 03/04/16 at 13:30 Amlodipine Besylate (Norvasc) 5 mg QPM PO ; Start 03/05/16 at 21:00 Hydroxychloroquine Sulfate (Plaquenil) 200 mg QPM PO ; Start 03/05/16 at 21:00 Metoprolol Succinate (Toprol Xl) 50 mg QPM PO ; Start 03/05/16 at 21:00 RAFI MAST MD Mar 05, 2016 13:56
[2016-03-05] MEDS ORDERED: metFORMIN 500 MG TAB PO SCH (17:55)
[2016-03-05 20:26] VITALS: BP 134/86; RESP 20
[2016-03-05] MEDS ORDERED: HYDROXYCHLOROQUINE 200 MG TAB PO SCH (21:00)
[2016-03-05] MEDS ORDERED: AMLODIPINE 5 MG TAB PO SCH (21:00)
[2016-03-05] MEDS ORDERED: METOPROLOL (XL) 50 MG TAB PO SCH (21:00)
[2016-03-05] MEDS: MAGNESIUM HYDROXIDE 30ML CUP PO SCH (21:23)
[2016-03-06] MEDS: ACCUCHECK XX SCH (02:00)
[2016-03-06] MEDS: 1/2 NS + KCL 20 MEQ 1,000 ML IV SCH (03:18)
[2016-03-06] MEDS: ONDANSETRON 4 MG INJ IV PRN ×2 (05:26→11:36)
[2016-03-06] MEDS: traMADol 50 MG TAB PO SCH ×2 (05:27→11:37)
[2016-03-06 06:06] LABS: BASOPHILS % 0.2 % (0.0-2.0); EOSINOPHILS # 0.4 10^3/ul (0.0-0.5); EOSINOPHILS % 2.7 % (0.0-7.0); HEMATOCRIT 28.5 % (37.0-47.0); HEMOGLOBIN 9.6 g/dl (12.0-16.0); LYMPHOCYTES # 2.1 10^3/ul (0.8-2.9); LYMPHOCYTES % 15.4 % (15.0-51.0); MEAN CORPUSCULAR HGB CONC 33.5 g/dl (32.0-37.0); MEAN CORPUSCULAR VOLUME 80.6 fl (82.0-101.0); MEAN PLATELET VOLUME 9.5 fl (7.4-10.4); MONOCYTES % 7.8 % (0.0-11.0); NEUTROPHIL # 9.9 10^3/ul (1.6-7.5); NEUTROPHILS % 73.9 % (39.0-77.0); PLATELET COUNT 266 10^3/UL (140-440); RED BLOOD COUNT 3.53 10^6/ul (4.20-5.40); RED CELL DISTRIBUTION WIDTH 17.8 % (11.5-14.5); UNCORRECTED WBC 13.4 10^3/ul (4.8-10.8); WHITE BLOOD COUNT 13.4 10^3/ul (4.8-10.8)
[2016-03-06 06:22] LABS: CONDITION 1; LH ANALYZER COMMENTS 1
[2016-03-06] MEDS: INSULIN ASPART [NOVOLOG] 3 ML PEN SC SCH ×2 (07:50→11:40)
[2016-03-06 07:54] VITALS: BP 140/64; RESP 18
[2016-03-06] MEDS: METOCLOPRAMIDE 10 MG TAB PO SCH (08:37)
[2016-03-06] MEDS: ASPIRIN (EC) 325 MG TAB PO SCH (08:37)
[2016-03-06] MEDS: LOSARTAN 50 MG TAB PO SCH (08:37)
[2016-03-06] MEDS: CHOLECALCIFEROL 2,000 UNIT CAP PO SCH (08:37)
[2016-03-06] MEDS: FAMOTIDINE 20 MG TAB PO SCH (08:37)
[2016-03-06] MEDS: SENNA/DOCUSATE NA (8.6MG/50MG) TAB PO SCH (08:37)
--- NOTE | 2016-03-06 10:04 | CONS ---
Date/Time of Note Date/Time of Note DATE: 03/06/16 TIME: 10:01 Assessment/Plan Assessment/Plan Chief Complaint/Hosp Course 1.She is 4 days post op a L TKR . She is working with PT and was cleared by PT to go home today . . 2.She can be discharged to home today . She will have full-time care at home. Problems: Consultation Date/Type/Reason Admit Date/Time Mar 02, 2016 at 05:39 Type of Consultation: medicine 24 HR Interval Summary Free Text/Dictation She is feeling better . She was cleared by PT to go home . Constitutional: improved, no complaints Exam/Review of Systems Vital Signs Vitals Vital Signs Date Time Temp Pulse Resp B/P Pulse Ox O2 Delivery O2 Flow Rate FiO2 03/06/16 07:54 98.5 58 18 140/64 94 03/03/16 02:00 Nasal Cannula 03/02/16 20:30 2.0 Intake and Output 03/05/16 03/05/16 03/06/16 14:59 22:59 06:59 Intake Total 700 ml 600 ml Balance 700 ml 600 ml Exam Constitutional: alert, oriented, well developed Psych: nl mood/affect, no complaints Respiratory: clear to auscultation, normal air movement Cardiovascular: regular rate and rhythm Musculoskeletal: nl extremities to inspection Results Result Diagram: 03/06/16 0430 03/05/16 0450 Results 24 hrs Laboratory Tests Test 03/05/16 11:41 03/05/16 17:07 03/05/16 21:27 03/06/16 04:30 Bedside Glucose 132 127 123 Basophils # 0.0 Basophils % 0.2 Blood Morphology Comment Eosinophils # 0.4 Eosinophils % 2.7 Hematocrit 28.5 L Hemoglobin 9.6 L Lymphocytes # 2.1 Lymphocytes % 15.4 Mean Corpuscular Hemoglobin 27.0 L Mean Corpuscular Hemoglobin Concent 33.5 Mean Corpuscular Volume 80.6 L Mean Platelet Volume 9.5 Monocytes # 1.0 H Monocytes % 7.8 Neutrophils # 9.9 H Neutrophils % 73.9 Nucleated Red Blood Cells # 0.0 Nucleated Red Blood Cells % 0.0 Platelet Count 266 Red Blood Count 3.53 L Red Cell Distribution Width 17.8 H White Blood Count 13.4 H Test 03/06/16 08:01 Bedside Glucose 122 Medications Medications Current Medications Tramadol HCl (Ultram) 50 mg Q6 PO Last administered on 03/06/16 05:27; Admin Dose 50 MG; Start 03/02/16 at 18:00 Oxycodone/ Acetaminophen (Percocet (5/ 325)) 1 tab Q3H PRN PO PAIN LEVEL 1-5; Start 03/02/16 at 07:00 Oxycodone/ Acetaminophen (Percocet (5/ 325)) 2 tab Q3H PRN PO PAIN LEVEL 6-10; Start 03/02/16 at 07:00 Hydromorphone HCl (Dilaudid) 1 mg Q3H PRN IV PAIN LEVEL 1-3 Last administered on 03/04/16 01:08; Admin Dose 1 MG; Start 03/02/16 at 07:00 Hydromorphone HCl (Dilaudid) 1.5 mg Q3H PRN IV PAIN LEVEL 4-6; Start 03/02/16 at 07:00 Hydromorphone HCl (Dilaudid) 2 mg Q3H PRN IV PAIN LEVEL 7-10; Start 03/02/16 at 07:00 Naloxone HCl (Narcan) 0.2 mg Q2M PRN IV RESPIRATORY RATE LESS THAN 8; Start 03/02/16 at 07:00 Senna/Docusate Sodium (Senokot-S) 1 tab BID PO Last administered on 03/06/16 08:37; Admin Dose 1 TAB; Start 03/02/16 at 21:00 Magnesium Hydroxide (Milk Of Mag) 30 ml BID PRN PO CONSTIPATION; Start 03/02/16 at 07:00 Magnesium Hydroxide (Milk Of Mag) 30 ml HS PO Last administered on 03/05/16 21 :23; Admin Dose 30 ML; Start 03/04/16 at 21:00 Ondansetron HCl (Zofran Inj) 4 mg Q4H PRN IV NAUSEA Last administered on 05:26; Admin Dose 4 MG; Start 03/02/16 at 07:00 Acetaminophen (Tylenol Tab) 1,000 mg Q4H PRN PO TEMP GREATER THAN 100.4 (ORAL) ; Start 03/02/16 at 07:00 Famotidine (Pepcid) 20 mg BID PO Last administered on 03/06/16 08:37; Admin Dose 20 MG; Start 03/02/16 at 21:00 Metoclopramide HCl (Reglan) 10 mg BID PO Last administered on 03/06/16 08:37; Admin Dose 10 MG; Start 03/02/16 at 21:00 Aspirin 325 mg 325 mg BID PO Last administered on 03/06/16 08:37; Admin Dose 325 MG; Start 03/03/16 at 09:00 Potassium Chloride/Sodium Chloride (1/2 NS + KCl 20 Meq) 1,000 ml @ 70 mls/hr [id number] IV Last administered on 03/04/16 20:54; Admin Dose 70 MLS/HR; Start at 13:30 Diagnostic Test (Pha) (Accucheck) 1 ea 02 XX ; Start 03/03/16 at 02:00 Cholecalciferol (Vitamin D) 2,000 unit DAILY PO Last administered on 03/06/16 08:37; Admin Dose 2,000 UNIT; Start 03/03/16 at 09:00 Losartan Potassium (Cozaar) 50 mg DAILY PO Last administered on 03/06/16 08:37 ; Admin Dose 50 MG; Start 03/03/16 at 09:00 Miscellaneous Information 1 ea NOTE XX ; Start 03/02/16 at 14:00 Glucose (Glutose) 15 gm Q15M PRN PO DECREASED GLUCOSE; Start 03/02/16 at 14:00 Glucose (Glutose) 22.5 gm Q15M PRN PO DECREASED GLUCOSE; Start 03/02/16 at 14:00 Dextrose (D50w Syringe) 25 ml Q15M PRN IV DECREASED GLUCOSE; Start 03/02/16 at 14:00 Dextrose (D50w Syringe) 50 ml Q15M PRN IV DECREASED GLUCOSE; Start 03/02/16 at 14:00 Glucagon (Glucagen) 1 mg Q15M PRN IM DECREASED GLUCOSE; Start 03/02/16 at 14:00 Glucose (Glutose) 15 gm Q15M PRN BUCCAL DECREASED GLUCOSE; Start 03/02/16 at 14: 00 Phenol (Cepastat Lozenge) 1 lozenge Q1H PRN MT pain Last administered on 13:38; Admin Dose 1 LOZENGE; Start 03/04/16 at 13:30 Amlodipine Besylate (Norvasc) 5 mg QPM PO Last administered on 03/05/16 21:24 ; Admin Dose 5 MG; Start 03/05/16 at 21:00 Hydroxychloroquine Sulfate (Plaquenil) 200 mg QPM PO Last administered on 21:23; Admin Dose 200 MG; Start 03/05/16 at 21:00 Metoprolol Succinate (Toprol Xl) 50 mg QPM PO Last administered on 03/05/16 21 :24; Admin Dose 50 MG; Start 03/05/16 at 21:00 RAFI MAST MD Mar 06, 2016 10:04
--- NOTE | 2016-03-06 10:06 | PDOCDIS ---
Discharge Instructions CONDITION Patient Condition: Good HOME CARE INSTRUCTIONS: Diet Instructions: Reduced Sodium ACTIVITY: Activity Restrictions: Slowly Increase Activity Rest between Activity Avoid heavy lifting Do not Drive Do not operate Machinery Partial Weight Bearing Bathing Restrictions: Shower FOLLOW UP/APPOINTMENTS Appointments RAFI Donaldson MD Mar 06, 2016 10:05
== END 2016-03-06 13:35 | disposition home health service (06) | DRG 470 ==
LOC: REC 05:39 → MS1 12:29
PROVIDERS: ADMIT Orthopaedic Surgery; ATTEND Orthopaedic Surgery
PROC: XR2H021 Monitoring of Left Knee Joint using Intraoperative Knee Replacement Sensor, Open Approach, New Technology Group 1 (ICD-10-PCS; 2016-03-02)
PROC: 0SRD0J9 Replacement of Left Knee Joint with Synthetic Substitute, Cemented, Open Approach (ICD-10-PCS; principal; 2016-03-02 07:00)
DX: M17.12 Unilateral primary osteoarthritis, left knee (principal); E11.9 Type 2 diabetes mellitus without complications; I10 Essential (primary) hypertension; E66.9 Obesity, unspecified; Z68.36 Body mass index [BMI] 36.0-36.9, adult
CPT/HCPCS: 73560; 73590; 80048; 82962; 85025; 86850; 86900; 86901; 86920; 88304; 88311; 97110; 97116; 97162; 97530; C1776; J0171; J0735; J1100; J1170; J1815; J1885; J2001; J2175; J2250; J2274; J2405; J2710; J2795; J3010; J3370; J3480; J7120